=== PATIENT | female | born 1980 | race Caucasian/White ===

== ENCOUNTER 2018-01-23 11:59 | Day surgery (SDC) | payer OTHER, SELFPAY ==
[2018-01-23] VITALS (7 sets, daily range): BP systolic 84–103; BP diastolic 45–57; PULSE 63–85; RESP 16–18; TEMP 36.7–36.8; O2SAT 99–100; BMI 22.6
[2018-01-23 12:21] LABS: Internal QC Validated? YES +Cl - CLEAR BKGD; Pregnancy, Urine Negative Negative
[2018-01-23 12:32] LABS: Hematocrit 35.9 % (37-47); Hemoglobin 12.4 g/dl (12.0-15.0); Mean Corp Hgb Conc 34.5 g/gl (32-36); Mean Corpuscular Hgb 29.9 pg (27.0-32.0); Mean Corpuscular Volume 86.5 fL (81-99); Mean Platelet Vol. 9.3 fl (6.2-12.0); Platelet Count 305 K/mm3 (150-450); RBC Distribution Width CV 12.8 % (11.6-14.6); RBC Distribution Width SD 39.6 fl (35.1-43.9); Red Blood Count 4.15 M/mm3 (4.2-5.4); White Blood Count 7.4 K/mm3 (4.4-11.0)
[2018-01-23 12:42] LABS: Scan Indicated on CBC? Y/N NO
--- NOTE | 2018-01-23 13:35 | EMB_PTH ---
PATIENT: FIORELLA YUEN LOC: [facility] [place] U#:[id number] AGE/SX: 37/F ROOM: RE01/23/[address]: Dr. Betty Jane MD : 1980 BED: DIS: 01/23/2018 SPEC #: [id number] RECD: 01/23/18 15:41 STATUS: NATALIE WATKINS #: [id number] NAVDEEP: 01/23/18 13:[address]: Betty Jane DEPT: SURGICAL PATHOLOGY RECD BY: Elvin Wolfe ENTERED: 01/24/18 09:46 SP TYPE: ENDOM BX/C OTHR DR: Dr. Carson Merrill MD Tissues: Endometrium, NOS Procedures: Surgery Specimen Level IV HEADER OPERATION: Hysteroscopy, diagnostic, D & C David Clear PRE-OP DIAGNOSIS: Abnormal uterine bleeding and endometrial polyp TISSUE SUBMITTED: Endometrial curettings and polyp MICROSCOPIC DIAGNOSIS Endometrial curettings and polypectomy: Fragments of secretory endometrium. AM:danny 01/27/18 COMMENT Case has been reviewed in consultation with Dr. Wood who concurs with the above diagnosis. IDC:LEO MICROSCOPIC DESCRIPTION Slides are reviewed. GROSS DESCRIPTION Received in fixative is one container labeled with the patient's name and designated endometrial curettings and polyp. The specimen consists of multiple irregular fragments of morales soft tissue that in aggregate measure 5 x 3 x 0.2 cm. The entire specimen is submitted in two cassettes. / SJ:danny 01/24/18 TC:5 CPT: 64667
[2018-01-23] MEDS: Acetaminophen 500 MG Tablet 1000 MG PO (13:46)
[2018-01-23] MEDS: Ketorolac 60 MG/2 ML Vial IM (13:47)
--- NOTE | 2018-01-23 15:13 | PCM.DC.D&C ---
Discharge Diet: No Restrictions Discharge Activity: Return to Normal Activity, May Shower, May Take a Tub Bath - in 2 weeks. Call your doctor if your incision/area has: Sudden Increased Bleeding, Foul Smelling Discharge Call your doctor if you observe: Fever of 101 or Higher, Inability to urinate, Using more than one pad per hour Allergies/Adverse Reactions: Allergies No Known Allergies Allergy (Verified 01/20/18 13:41) Medications to take at Discharge Vits [Prenatabs FA ] 1 tablet PO DAILY 08/23/14 Vitamin B-12 1 injectable IM QMONTH 08/23/14 Primary Care Physician: Carson Merrill [Primary Care Provider] - Please Follow Up With: Betty Jane MD - [phone] When: as needed or 2-4 weeks
--- NOTE | 2018-01-23 15:13 | PCM.OPRPT ---
Report of Operation Date of Procedure: 01/23/18 Pre-Operative Diagnosis: abnormal uterine bleeding, endometrial polyp Post-Operative Diagnosis: same Surgery/Procedure Performed:: Hysteroscopy D&C with endometrial polyp resection with Truclear device Description of Surgical Findings:: lush endometrium, lower segment endometrial polyp, both tubal ostia identified surveying or spatial science technician: Jose Fischer mS Type of Anesthesia:: MAC/Supplemental/Local Special Medications: none Specimen's removed: endometrial curettings and polyp Drains: none Estimated Blood Loss (mL): 10 cc Fluids Replaced: 1100 ccLR Description of Procedure: The patient was taken to the OR where she was prepped and draped in dorsal lithotomy position. The weighted speculum was placed in the vagina and the anterior lip of the cervix was grasped with a single-tooth tenaculum. A paracervical block was administered with 1% lidocaine with 1-100,000 epinephrine solution. The cervix was dilated serially with Hegar dilators. The 7mm hysteroscope was placed into the uterine cavity and the above findings were noted. Bilateral tubal ostia were identified. True clear device was readied and placed into the endometrial cavity. Used to resect the lower uterine segment polyp and do a visual D&C. the instruments were removed from the vagina. The specimen was handed off and sent to pathology. All sponge and needle counts were correct. Vaginal sweep was performed by me. The patient was awakened and taken to the recovery room in stable condition. Fluid deficit 230 cc of normal saline for the hysteroscopy Findings: Endometrial cavity: Normal shape, lush endometrium, no fibroids, polyp in the lower uterine segment Cervix: normal Vagina: normal Grafts/Implants Used: none - Complications none - Admit VTE Documentation VTE Present on Admission: No VTE Mechan Device Prophylaxis: None VTE Pharm Prophylaxis ordered?: No Reason prophylaxis not ordered:: Procedure Not Indicated
== END 2018-01-23 16:45 | disposition home or self-care (01) ==
LOC: SDC 11:59 → AC 12:02
PROVIDERS: Anesthesiology; Family Provider Family Medicine; PCP Family Medicine; Visit Provider Obstetrics & Gynecology
PROC: (CPT 58558; principal; 2018-01-23 13:20)
DX: N84.0 Polyp of corpus uteri (principal); N93.9 Abnormal uterine and vaginal bleeding, unspecified; D51.0 Vitamin B12 deficiency anemia due to intrinsic factor deficiency; Z79.891 Long term (current) use of opiate analgesic
CPT/HCPCS: 58558; 81025; 85027; 88305; J7120; J2405

== ENCOUNTER → 2020-04-19 11:06 | Outpatient (CLI) | payer OTHER, SELFPAY ==
--- NOTE | 2020-04-19 | BRBX_PTH ---
PATIENT: FIORELLA YUEN LOC: [facility] U#:[id number] AGE/SX: 45/F ROOM: RE04/19/[address]: Dr. Daiana Garza MD : 1980 BED: DIS: SPEC #: [id number] RECD: 04/19/20 12:21 STATUS: NATALIE RE #: [id number] NAVDEEP: 04/19/20 00:[address]: Daiana Garza DEPT: SURGICAL PATHOLOGY RECD BY: Fer Merrill ENTERED: 04/19/20 12:22 SP TYPE: BREAST BX OTHR DR: MD Dr. Carson Villatoro MD Tissues: Right breast, NOS Procedures: Surgery Specimen Level IV HEADER OPERATION: Right breast stereotactic biopsy PRE-OP DIAGNOSIS: Right breast superior medial middle depth calcifications TISSUE SUBMITTED: Right breast tissue ISCHEMIC TIME: 1 minute FIXATION TIME: 8 hours MICROSCOPIC DIAGNOSIS Right breast, superior medial middle depth calcification, stereotactic core biopsy: Fragments of benign breast tissue with extensive hyalinization, focal fibrocystic changes and adenosis. Negative for atypia or malignancy. Focal microcalcifications. See comment. LEO:danny 04/20/20 COMMENT Correlation with clinical, radiologic findings and appropriate follow up are necessary. MICROSCOPIC DESCRIPTION Slides are reviewed. GROSS DESCRIPTION Received in fixative is one container labeled with the patient's name and designated right breast. The specimen consists of multiple elongated fragments of white-morales soft tissue that in aggregate measure 5 x 3 x 0.2 cm. The specimen is submitted in its entirety in two cassettes. / AM:danny 04/19/20 TC:5 CPT: 56800
--- NOTE | 2020-04-19 12:00 | PCM.OPRPT ---
Report of Operation Date of Procedure: 04/19/20 Pre-Operative Diagnosis: abnormal calcifications in right breast mammograms Post-Operative Diagnosis: same Surgery/Procedure Performed:: right stereotactic breast biopsy Description of Surgical Findings:: calcifications of upper mid right breast Type of Anesthesia:: Local - 1% xylocaine Specimen's removed: right breast tissue Estimated Blood Loss (mL): minimal Fluids Replaced: none Description of Procedure: After informed consent was given, the patient was brought into the breast biopsy suite. Appropriate time out protocol was followed. She was then placed in the prone position on the stereotactic biopsy table. The patient?s right breast was then placed in the hole at the head of the table. A sales special agent compression mammogram was then obtained in the CC view. The suspicious radiological lesion was then identified. Stereo pictures of the lesion were then taken for XYZ coordinates. The Mammotome biopsy stylus was then positioned where it would be entering into the patient?s breast. The skin at this site was then cleansed with a surgical skin preparation. The skin and subcutaneous tissues at this site were then infiltrated with 1% xylocaine. A small skin incision was made with an 11 blade scalpel. The biopsy stylus was then positioned into the patient?s breast at the proper coordinates of depth. Using the Mammotome vacuum-assist device, several core samples of breast tissue were obtained. A specimen mammogram was the obtained and revealed that the suspicious lesion was within the specimen. A hemostatic marker clip was then placed into the biopsy cavity and a sales special agent film revealed that it was properly deployed. The patient was then placed in the supine position and pressure was applied to the breast until no active bleeding was noted. Steristrips were applied to reapproximate the skin. A unilateral mammogram in the CC and MLO view were then taken which revealed that the marker clip was in the same area as the previous suspicious lesion. The patient tolerated the procedure well and was discharged from the breast biopsy suite in good condition. - Complications none noted
== END ==
PROVIDERS: PCP Family Medicine; Referring Provider Surgery; Visit Provider Surgery
DX: N60.11 Diffuse cystic mastopathy of right breast (principal)
CPT/HCPCS: 19081; 88305; J7050; A4648